=== PATIENT | female | born 1970 | race Caucasian/White ===

== ENCOUNTER 2017-10-28 09:29 | Emergency (ER) | END 2017-10-28 12:57 | disposition home or self-care (01) ==

== ENCOUNTER 2019-01-06 17:56 | Emergency (ER) | payer MEDICAID ==
[~2019-01-06] VITALS: Ht 157.5 cm; Wt 67.2 kg
[~2019-01-06 17:56] MED LIST: CIPR500T4 PO; HYDR-4011 PO; METF750T2 PO; [UNRECOGNIZED DRUG - REMARK]
[2019-01-06 18:30] VITALS: Ht 157.5 cm; Wt 67.2 kg
[2019-01-06] MEDS ORDERED: IBUP800T48 PO (21:55)
[2019-01-06] MEDS ORDERED: SULF1TAB31 PO (21:55)
[2019-01-06] MEDS ORDERED: CEPH-443 PO (21:55)
--- NOTE | 2019-01-06 21:58 | ERD ---
ER Documentation Chief Complaint Chief Complaint left ingrown toe nail x 3 days, c/o pain/redness left great toe HPI 48-year-old female with history of diabetes is here with left big toe redness that began 3 days ago after getting a pedicure. She noticed some purulent drainage from it. No fevers. It is painful when she walks. Has not taken any medications for this. ROS All systems reviewed and are negative except as per history of present illness. Medications Home Meds Active Scripts Cephalexin* (Keflex*) 500 Mg Capsule, 500 MG PO QID for 7 Days, CAP Prov:KATYA LIRA PA-C 01/06/19 Ibuprofen* (Motrin*) 800 Mg Tab, 800 MG PO Q6, #30 TAB Prov:KATYA LIRA PA-C 01/06/19 Sulfamethoxazole/Trimethoprim* (Bactrim Ds* Tablet) 1 Each Tablet, 1 TAB PO BID, #14 TAB Prov:KATYA LIRA PA-C 01/06/19 Hydrocodone/Acetaminophen ([place] 5-325 Tablet) 1 Each Tablet, 1 TAB PO Q6H PRN for PAIN, #7 TAB Prov:MART BALL. DO 10/28/17 Metformin Hcl* (Metformin Hcl* ER) 750 Mg Tab.sr.24h, 750 MG PO BID, #30 TAB Prov:APRIL BALLSTNEHAS A. DO 10/28/17 Ciprofloxacin Hcl* (Ciprofloxacin Hcl*) 500 Mg Tablet, 500 MG PO BID for 7 Days, TAB Prov:MART BALL. DO 10/28/17 Reported Medications [Unk Names] No Conflict Check 06/12/12 Allergies Allergies: Coded Allergies: No Known Drug Allergies (Verified Allergy, Severe, 06/12/12) PMhx/Soc History of Surgery: No Anesthesia Reaction: No Hx Neurological Disorder: No Hx Respiratory Disorders: No Hx Cardiac Disorders: No Hx Psychiatric Problems: No Hx Miscellaneous Medical Probl: No Hx Alcohol Use: No Hx Substance Use: No Hx Tobacco Use: No FmHx Family History: No diabetes Physical Exam Vitals Vital Signs Date Temp Pulse Resp B/P (MAP) Pulse Ox O2 O2 Flow FiO2 Time Delivery Rate 01/06/19 98.3 86 18 135/75 98 18:30 (95) Physical Exam INITIAL VITAL SIGNS: Reviewed by me GENERAL: Awake, alert and oriented x 4, well appearing, nontoxic, speaking in full sentences. No acute distress HEAD: Atraumatic NECK: Supple. No masses. Full range of motion. No meningismus. No midline tenderness. RESPIRATORY: Clear to auscultation bilaterally. Symmetric chest wall rise. No wheezing or rales. No accessory muscle use. CV: Regular rate and rhythm. No murmurs, rubs, or gallops. EXTREMITIES: Left big toe has mild erythema on the medial aspect, no significant edema, no bleeding or drainage, tender to palpation mildly warm, capillary refill less than 2 seconds, sensation to light touch is intact throughout Procedures/MDM Diabetic female has cellulitis on her left big toe after getting a pedicure. I explained to her that because she is diabetic she needs to have a low threshold to come back and she should return in 2 days for a wound check or sooner for new or worsening symptoms. She was discharged with Bactrim and Keflex. As well as Motrin for pain. Patient counseled regarding my diagnostic impression and care plan. Prior to discharge all questions answered. Pt agrees with treatment plan and understands strict return precautions. Pt is instructed to follow up with primary care provider within 24-48 hours. Precautionary instructions provided including instructions to return to the ER if not improving or for any worsening or changing symptoms or concerns. Departure Diagnosis: Primary Impression: Ingrown nail Condition: Stable Patient Instructions: Ingrown Toenail, Infected (Abx Only) Additional Instructions: Llame al doctor ARNOL y bobby luke [place] PARA DENTRO DE 1-2 DALE.Dgale a la secretaria que nosotros le instruimos hacer esta clinton.Avise o llame si spears condicin se empeora antes de la clinton. Regresa aqui si peor o no mejor. KATYA LIRA PA-C Jan 06, 2019 21:58
[2019-01-06 22:13] VITALS: BP 115/69; PULSE 69; RESP 18
== END 2019-01-06 22:15 | disposition home or self-care (01) ==
LOC: FTE 17:56
DX: L60.0 Ingrowing nail (principal); E11.9 Type 2 diabetes mellitus without complications
CPT/HCPCS: 99283

== ENCOUNTER 2019-04-04 21:59 | Emergency (ER) | payer MEDICAID ==
[~2019-04-04] VITALS: Ht 154.9 cm; Wt 64.0 kg
[~2019-04-04 21:59] MED LIST changes: +CEPH-443 PO; +IBUP800T48 PO; +SULF1TAB31 PO
[2019-04-04 22:10] VITALS: Ht 154.9 cm; Wt 64.0 kg
[2019-04-05] MEDS ORDERED: KETOROLAC 30 MG INJ IM STA (01:29)
--- NOTE | 2019-04-05 01:29 | ERD ---
ER Documentation Chief Complaint Chief Complaint right breast pain x 1 day HPI This is a 48-year-old female who presented emergency department with complaints of right sided breast and chest pain that started yesterday. Pain was described as pressure-like. LMP: March 28, 2019. A0. Denies headache, head injury, loss of consciousness, dizziness, neck pain, neck stiffness, throat pain, difficulty swallowing, difficulty breathing lying flat, shoulder pain, chest pain, back pain, abdominal pain, nausea, vomiting, constipation, diarrhea, urinary symptoms, or possibility being , loss of bowel and bladder control, trauma, injury, falls, difficulty walking due to pain, numbness or tingling sensation, calf pain, recent travel, recent major surgery in the last 3 weeks, calf pain, recent long travel, recent exposure to any illness, recent antibiotic use in the last 3 months, fever, chills, seizures. Past medical history: Stated that he has diabetes. Takes metformin at home. Surgical history: . Social: Denies smoking, use of alcoholic beverages, use of illegal drugs. ROS All systems reviewed and are negative except as per history of present illness. Medications Home Meds Active Scripts Metformin* (Glucophage*) 1,000 Mg Tablet, 1000 MG PO BID, #60 TAB Prov:SHARIF PALACIOAR F 04/05/19 Cephalexin* (Keflex*) 500 Mg Capsule, 500 MG PO QID for 5 Days, CAP Prov:PASILABAN,SHARIFAR F 04/05/19 Ibuprofen* (Motrin*) 600 Mg Tab, 600 MG PO Q8 PRN for PAIN AND OR ELEVATED TEMP, #30 TAB Prov:GAMALILATAMMYSHARIFAR F 04/05/19 Cephalexin* (Keflex*) 500 Mg Capsule, 500 MG PO QID for 7 Days, CAP Prov:KATYA LIRA PA-C 01/06/19 Ibuprofen* (Motrin*) 800 Mg Tab, 800 MG PO Q6, #30 TAB Prov:KATYA LIRA PA-C 01/06/19 Sulfamethoxazole/Trimethoprim* (Bactrim Ds* Tablet) 1 Each Tablet, 1 TAB PO BID, #14 TAB Prov:KATYA LIRA PA-C 01/06/19 Hydrocodone/Acetaminophen ([place] 5-325 Tablet) 1 Each Tablet, 1 TAB PO Q6H PRN for PAIN, #7 TAB Prov:MART BALL DO 10/28/17 Metformin Hcl* (Metformin Hcl* ER) 750 Mg Tab.sr.24h, 750 MG PO BID, #30 TAB Prov:MART BALL DO 10/28/17 Ciprofloxacin Hcl* (Ciprofloxacin Hcl*) 500 Mg Tablet, 500 MG PO BID for 7 Days, TAB Prov:MART BALL DO 10/28/17 Reported Medications [Unk Names] No Conflict Check 06/12/12 Allergies Allergies: Coded Allergies: No Known Drug Allergies (Verified Allergy, Severe, 06/12/12) PMhx/Soc History of Surgery: No Anesthesia Reaction: No Hx Neurological Disorder: No Hx Respiratory Disorders: No Hx Cardiac Disorders: No Hx Psychiatric Problems: No Hx Miscellaneous Medical Probl: No Hx Alcohol Use: No Hx Substance Use: No Hx Tobacco Use: No Smoking Status: Never smoker Physical Exam Vitals Vital Signs Date Temp Pulse Resp B/P (MAP) Pulse Ox O2 O2 Flow FiO2 Time Delivery Rate 04/05/19 98.0 60 16 139/75 98 Room Air 05:02 (96) 04/04/19 97.6 62 18 129/75 100 22:10 (93) Physical Exam Examined with femal rail walkerVictoria RN. Head: Atraumatic Eyes: Normal Conjunctiva ENT: Normal External Ears, Nose and Mouth. Bilateral ears: TMs are not erythematous. No bleeding. No discharge. No hearing loss. No mastoid tenderness. Nose: There is no frontal or maxillary sinus tenderness palpation. Throat: Uvula is in midline and nondisplaced. Tonsils are +1 bilaterally without redness and without exudates. Tolerating secretions. Patent airway. Speaks full and clear sentences. No tripoding. Neck: Full range of motion. No meningismus. No nuchal rigidity. No signs of meningeal irritation. Resp: Clear to auscultation bilaterally. No accessory muscle use in breathing. Chest area/breast: Examined with female rail walkerMamta RN. No crepitus. No vesicular lesions. No palpable masses. No skin discoloration. No nipple inversion bilaterally. No area discoloration. Cardio: Regular rate and rhythm, no murmurs Abd: Soft, non tender, non distended. Normal bowel sounds. Negative Frazier sign. Negative Jennifer sign (heel jar test). Negative psoas sign. Negative Ro vsing sign. No CVA tenderness. Skin: No petechiae or rashes. Color appears normal for ethnicity. No skin tenting. No signs of severe dehydration. Back: No midline or flank tenderness Ext: No cyanosis, or edema Neur: Awake and alert. No neurological deficits. Psych: Normal Mood and Affect Result Diagram: 04/05/19 0236 04/05/19 0236 Results 24 hrs Laboratory Tests Test 04/05/19 01:46 04/05/19 02:36 04/05/19 05:00 POC Beta HCG, Qualitative NEGATIVE White Blood Count 6.5 10^3/ul Red Blood Count 4.83 10^6/ul Hemoglobin 12.3 g/dl Hematocrit 38.9 % Mean Corpuscular Volume 80.5 fl Mean Corpuscular Hemoglobin 25.5 pg Mean Corpuscular 31.6 g/dl Hemoglobin Concent Red Cell Distribution Width 12.8 % Platelet Count 169 10^3/UL Mean Platelet Volume 12.6 fl Immature Granulocytes % 0.300 % Neutrophils % 57.8 % Lymphocytes % 31.5 % Monocytes % 8.7 % Eosinophils % 1.2 % Basophils % 0.5 % Nucleated Red Blood Cells % 0.0 /100WBC Immature Granulocytes # 0.020 10^3/ul Neutrophils # 3.7 10^3/ul Lymphocytes # 2.0 10^3/ul Monocytes # 0.6 10^3/ul Eosinophils # 0.1 10^3/ul Basophils # 0.0 10^3/ul Nucleated Red Blood Cells # 0.0 10^3/ul Prothrombin Time 12.1 Sec Prothrombin Time Ratio 0.9 INR International 0.89 Normalized Ratio Activated Partial Thromboplast 25.1 Sec Time Urine Color YELLOW Urine Clarity CLOUDY Urine pH 7.0 Urine Specific [place] 1.033 Urine Ketones NEGATIVE mg/dL Urine Nitrite NEGATIVE mg/dL Urine Bilirubin NEGATIVE mg/dL Urine Urobilinogen NEGATIVE mg/dL Urine Leukocyte Esterase 3+ Garcia/ul Urine Microscopic RBC 3 /HPF Urine Microscopic WBC > 182 /HPF Urine Squamous Epithelial Cells MODERATE /HPF Urine Bacteria FEW /HPF Urine Hemoglobin NEGATIVE mg/dL Urine Glucose 3+ mg/dL Urine Total Protein NEGATIVE mg/dl Sodium Level 140 mmol/L Potassium Level 4.5 mmol/L Chloride Level 104 mmol/L Carbon Dioxide Level 28 mmol/L Anion Gap 8 Blood Urea Nitrogen 11 mg/dl Creatinine 0.44 mg/dl Est Glomerular Filtrat > 60 mL/min Rate mL/min Glucose Level 386 mg/dl Calcium Level 9.0 mg/dl Total Bilirubin 0.4 mg/dl Direct Bilirubin 0.00 mg/dl Indirect Bilirubin 0.4 mg/dl Aspartate Amino Transf (AST/SGOT) 20 IU/L Alanine 29 IU/L Aminotransferase (ALT/SGPT) Alkaline Phosphatase 67 IU/L Troponin I < 0.012 ng/ml B-Type Natriuretic Peptide 26 PG/ML Total Protein 7.2 g/dl Albumin 3.9 g/dl Globulin 3.30 g/dl Albumin/Globulin Ratio 1.18 Lipase 309 U/L Urine Opiates Screen Negative Urine Barbiturates Negative Urine Amphetamines Screen Negative Urine Benzodiazepines Screen Negative Urine Cocaine Screen Negative Urine Cannabinoids Negative Bedside Glucose 310 mg/dL Current Medications Medications Dose Sig/Bianka Start Time Status Last (Trade) Ordered Route PRN Stop Time Admin Dose Reason Admin Ketorolac 30 mg ONCE STAT 04/05/19 DC 04/05/19 Tromethamine IM 01:29 02:44 (Toradol) 04/05/19 01:32 Sodium 1,000 ml @ Q1H ONCE 04/05/19 DC 04/05/19 Chloride 1,000 mls/hr IV 03:30 03:46 04/05/19 04:29 Procedures/MDM Diagnostic tests: EKG: Sinus bradycardia with ventricular rate of 54 bpm. No STEMI. Read by supervising physician. POC urine : Negative. Urinalysis: UTI. Blood works: Elevated blood sugar. Chest x-ray: No evidence of acute cardiopulmonary disease. Bilateral breast ultrasound: No sonographic abnormality seen in either breast. Clinical evaluation and management is recommended. Diagnostic mammography is recommended. Treatment: Toradol IM. Pepcid. Saline lock. Normal saline IV bolus. Re-evaluation: Denies headache, dizziness, neck pain, chest pain, breast pain, back pain, abdominal pain. Differential diagnosis I have low suspicion for acute microinfarction, acute coronary syndrome, pneumonia, pneumothorax, hemothorax, pulmonary embolism, breast malignancy at this time, pancreatitis. Final diagnosis: Breast pain. Chest pain. Hyperglycemia without DKA. Prescription: Motrin. Keflex. Metformin. Follow-up with PCP in the next 24-48 hours. Advised to follow-up with primary care physician and have him or her order a mammogram. Come back here in the emergency department for any new symptoms or any worsening symptoms. All questions and concerns were answered. Patient and family members verbalized understanding and agreed with plan of care. Hemodynamically stable on discharge. Departure Diagnosis: Primary Impression: Breast pain Additional Impressions: Hyperglycemia Hyperglycemia without ketosis UTI (urinary tract infection) Condition: Stable Additional Instructions: Follow-up with PCP in the next 24-48 hours. Advised to follow-up with primary care physician and have him or her order a mammogram. Come back here in the emergency department for any new symptoms or any worsening symptoms. FERNY PALACIO Apr 05, 2019 01:29
[2019-04-05] MEDS ORDERED: IBUP-1542 PO (03:30)
[2019-04-05] MEDS ORDERED: SOD CHLORIDE 0.9% 1,000 ML IV ONE (03:30)
[2019-04-05] MEDS ORDERED: CEPH-443 PO (03:31)
[2019-04-05] MEDS ORDERED: MTF1000T PO (03:48)
[2019-04-05 05:02] VITALS: BP 139/75; PULSE 60; RESP 16
== END 2019-04-05 05:05 | disposition home or self-care (01) ==
LOC: FTE 21:59
DX: N64.4 Mastodynia (principal); N39.0 Urinary tract infection, site not specified; E11.65 Type 2 diabetes mellitus with hyperglycemia; R07.9 Chest pain, unspecified; Z79.84 Long term (current) use of oral hypoglycemic drugs
CPT/HCPCS: 36415; 71046; 76641; 80053; 80307; 81001; 81025; 82962; 83690; 83880; 84484; 85025; 85610; 85730; 93005; 96372; J1885; J7030; Z7502